=== PATIENT | female | born 1985 | race Caucasian/White ===

== ENCOUNTER 2018-12-21 14:34 | Outpatient (CLI) | payer OTHER ==
--- NOTE | 2018-12-21 15:19 | Diagnostic Imaging Report ---
<p>Your browser does not support iframes.</p> HUMPHREY FAM (CATHETER BUILDER) - OP [facility] [id number] [facility].[address] [address] Report Submission Date: Dec 21, 2018 3:17:18 PM ACQUISITIONS EDITOR Patient Study Name: ANN PASTOR Date: Dec 21, 2018 2:49:17 PM ACQUISITIONS EDITOR Modality Type: US Gender: F Description: US ABDOMEN LIMITED : 85 Institution: [facility] Physician: HUMPHREY FAM (TUCKER) - OP Examination: Ultrasound gallbladder History: RUQ PAIN Findings: Sonographic evaluation of the right upper quadrant demonstrates the gallbladder without stones or sludge. Gallbladder wall not thickened. Common bile duct not measured. No intrahepatic biliary dilation. Liver demonstrates increased echogenicity. No mass or cyst. Normal flow on color analysis. Normal portal vein Doppler waveform. Right kidney measures 10.7 cm in length. No cortical mass or cyst. No hydronephrosis. Pancreatic region without gross irregularity. Impression: No gallstone or obstruction. Fatty liver. Electronically signed on Dec 21, 2018 3:17:18 PM ACQUISITIONS EDITOR by: Nitish BOYLE
== END 2018-12-21 14:36 ==
LOC: RAD 14:34
PROVIDERS: ATTEND Nurse Practitioner Family
DX: R10.11 Right upper quadrant pain (principal); R11.0 Nausea
CPT/HCPCS: 76705